=== PATIENT | female | born 1940 | race African-American/Black ===

== ENCOUNTER 2017-12-09 23:19 | Emergency (ER) | payer MEDICARE, MEDICAID ==
[~2017-12-09] VITALS: Ht 157.5 cm; Wt 68.0 kg
[~2017-12-09 23:19] MED LIST: ACET650T10 PO; AMLO10TA2 PO; ATOR10TA PO; CARV6.252 PO; CELE200C PO; CHOL100045 PO; CITA20TA19 PO; DOCU-141 PO; DONE10TA44 PO; Diphenhydramine Hcl PO; FEXO-65 PO; FURO40TA5 PO; HYDR28CR28 TP; HYDR50SY PO; MIRT7.5T10 PO; NITR0.4T SL; PANT40TA4 PO; POLY17PO4 PO; QUET100T PO; QUET25TA PO; RIVA15TA PO; SENN-167 PO; SPIR25TA PO; TRAM50TA2 PO; TRAV5DRO EACHEYE; VENL75CA56 PO; ZOLP5TAB2 PO
--- NOTE | 2017-12-10 00:32 | NUR ---
rec'd pt in bed, BIBA, ain no distress, aaox4, c/o 3rd digit finger blunt trauma s/p door slamming on it, denies any injuries. bleeding controlled,, no visible nail avulsion noted, cap refil < 3 sec, + cms, pt placed in bed, bed in lowest position, locked, HOB up,SR up X2 for safety,CB within reach, awaiting MD koch
[2017-12-10] MEDS: TRAMADOL HCL 50 MG TABLET PO ONE (01:12)
[2017-12-10] MEDS ORDERED: TRAMADOL HCL 50 MG TABLET ONE (01:26)
[2017-12-10] MEDS ORDERED: NEOMY/BACITRA/POLYMYXIN B OINT UD PACKET TP ONE (01:26)
--- NOTE | 2017-12-10 02:11 | NUR ---
called ambulance services on 2827 for [facility] back to assisted living, eta 1hr, ref no [id number],
[2017-12-10] MEDS: NEOMY/BACITRA/POLYMYXIN B OINT UD PACKET TP ONE (02:35)
--- NOTE | 2017-12-10 03:13 | NUR ---
pt in no distress, p/u by EMS, BLS, rx given to EMS personel, pt splint intact, advised to f/u with pmd or return to er for worsening of symptoms, verbalizes understanding
[2017-12-10] MEDS: SULFAMETH/TRIMETH 800/160 MG TABLET PO ONE (03:20)
[2017-12-10] MEDS ORDERED: SULFAMETH/TRIMETH 800/160 MG TABLET ONE (03:35)
== END 2017-12-10 03:24 | disposition home or self-care (01) ==
LOC: ER 23:20
DX: S62.662A Nondisplaced fracture of distal phalanx of right middle finger, initial encounter for closed fracture (principal); I10 Essential (primary) hypertension; K21.9 Gastro-esophageal reflux disease without esophagitis; F03.90 Unspecified dementia, unspecified severity, without behavioral disturbance, psychotic disturbance, mood disturbance, and anxiety; Z88.0 Allergy status to penicillin; Z88.5 Allergy status to narcotic agent; Z95.0 Presence of cardiac pacemaker; Z86.73 Personal history of transient ischemic attack (TIA), and cerebral infarction without residual deficits; Z90.710 Acquired absence of both cervix and uterus; W23.0XXA Caught, crushed, jammed, or pinched between moving objects, initial encounter; Y93.89 Activity, other specified; Y92.89 Other specified places as the place of occurrence of the external cause; Y99.8 Other external cause status
CPT/HCPCS: 73140; A4663

== ENCOUNTER 2018-02-13 18:34 | Emergency (ER) | payer MEDICARE, MEDICAID ==
[~2018-02-13] VITALS: Ht 152.4 cm; Wt 68.0 kg
--- NOTE | 2018-02-13 19:04 | NUR ---
Hands off report given to cupola operator insulation.
[2018-02-13] MEDS ORDERED: ACETAMINOPHEN ES 500 MG TABLET PO ONE (19:15)
--- NOTE | 2018-02-13 19:15 | NUR ---
Patient out of ER for CT.
[2018-02-13] MEDS ORDERED: ACETAMINOPHEN ES 500 MG TABLET ONE (19:27)
--- NOTE | 2018-02-13 19:46 | NUR ---
Patient back to ER from CT.
--- NOTE | 2018-02-13 20:30 | NUR ---
Called [facility] for ambulance transport for patient from [facility] to [facility]. Spoke with Rory, given ETA 2300, Trip#[phone].
--- NOTE | 2018-02-14 00:17 | NUR ---
[facility] arrived to pickup patient for transport to [facility].
--- NOTE | 2018-02-14 00:20 | NUR ---
Patient out of ER via gurney to be taken by EMT to [facility]. VSS, All belongings taken, no acute signs of distress. CD of Xray provided.
[2018-02-14 00:31] VITALS: BP 140/95
== END 2018-02-14 00:20 | disposition home or self-care (01) ==
LOC: ER 18:34
DX: S80.01XA Contusion of right knee, initial encounter (principal); S09.90XA Unspecified injury of head, initial encounter; I10 Essential (primary) hypertension; K21.9 Gastro-esophageal reflux disease without esophagitis; Z95.0 Presence of cardiac pacemaker; Z90.710 Acquired absence of both cervix and uterus; Z88.0 Allergy status to penicillin; Z88.1 Allergy status to other antibiotic agents; Z88.5 Allergy status to narcotic agent; Z88.8 Allergy status to other drugs, medicaments and biological substances; Z79.899 Other long term (current) drug therapy; Z79.891 Long term (current) use of opiate analgesic; W01.0XXA Fall on same level from slipping, tripping and stumbling without subsequent striking against object, initial encounter; Y93.89 Activity, other specified; Y92.89 Other specified places as the place of occurrence of the external cause; Y99.8 Other external cause status
CPT/HCPCS: 70450; A4663; A9150

== ENCOUNTER 2018-02-20 16:11 | Inpatient (IN) | payer MEDICARE, MEDICAID ==
[~2018-02-20] VITALS: Ht 157.5 cm; Wt 64.4 kg
[2018-02-20] MEDS ORDERED: MONT10TA22 PO (16:38)
[2018-02-20] MEDS ORDERED: SULF1TAB48 PO (16:39)
[2018-02-20] MEDS ORDERED: FLUT16SP2 NS (16:39)
[2018-02-20] MEDS ORDERED: LORA-441 PO (16:39)
[2018-02-20] MEDS ORDERED: MELA3TAB52 PO (16:39)
--- NOTE | 2018-02-20 16:53 | NUR ---
PT IS IN ROOM #2B, DR KERR EVALUATED THE PT.
[2018-02-20] MEDS ORDERED: IV NORMAL SALINE 1000 ML BAG IV ONE (17:00)
[2018-02-20 17:07] LABS: *BILIRUBIN,URIN NEGATIVE (NEGATIVE); *BLOOD, URINE NEGATIVE (NEGATIVE); *CLARITY,URINE CLEAR (CLEAR); *COLOR,URINE YELLOW (YELLOW); *KETONES,URINE NEGATIVE (NEGATIVE); *PROTEIN,URINE NEGATIVE (NEGATIVE); *UROBILINOGEN,URINE 0.2 E.U./dl (NORMAL); LEUKOCYTE ESTERASE ,URINE NEGATIVE (NEGATIVE); NITRITE, URINE NEGATIVE (NEGATIVE); UGLUCOSE NEGATIVE (NEGATIVE)
[2018-02-20 17:15] LABS: BACTERIA,URINE FEW /HPF (NONE SEEN); SQUAMOUS EPITHELIAL CELL,UR MODERATE /HPF (NONE SEEN); WBC,URINE 0-3 /HPF (0-3); YEAST,URINE FEW /HPF (NONE SEEN)
[2018-02-20 17:25] LABS: BASOPHILS # (AUTO) 0.1 K/uL (0.0-8.0); EOSINOPHILS # (AUTO) 0.1 K/uL (0.0-0.7); EOSINOPHILS % (AUTO) 0.9 % (0.0-7.0); HEMATOCRIT 39.3 % (31.2-41.9); HEMOGLOBIN 13.2 g/dL (10.9-14.3); LYMPHOCYTES # (AUTO) 2.1 K/uL (20.0-40.0); LYMPHOCYTES % (AUTO) 31.8 % (20.5-51.5); MEAN CORPUSCULAR HEMOGLOBIN 32.1 uug (24.7-32.8); MEAN CORPUSCULAR HGB CONC 34 g/dL (32.3-35.6); MEAN CORPUSCULAR VOLUME 95.6 fL (75.5-95.3); MONOCYTES # (AUTO) 0.7 K/uL (2.0-10.0); MONOCYTES % (AUTO) 10.7 % (0.0-11.0); NEUTROPHILS # (AUTO) 3.6 K/uL (1.8-8.9); NEUTROPHILS % (AUTO) 55.6 % (38.5-71.5); PLATELET COUNT (AUTO) 220 K/uL (179-408); RED BLOOD CELL COUNT(AUTO) 4.11 MIL/uL (3.63-4.92); WHITE BLOOD COUNT (AUTO) 6.6 K/uL (3.8-11.8)
[2018-02-20 17:33] LABS: CARBON DIOXIDE 27 mmol/L (21-32); CHLORIDE 106 mmol/L (98-107); CREATININE 1.2 mg/dL (0.6-1.3); GLUCOSE 101 mg/dL (74-106); UREA NITROGEN, BLOOD 17 mg/dL (7-18)
[2018-02-20 17:45] LABS: ALANINE AMINOTRANSFERASE 26 U/L (14-59); ALKALINE PHOSPHATASE 70 U/L (50-136); ASPARTATE AMINOTRANSFERASE 18 U/L (15-37); BILIRUBIN,DIRECT 0.1 mg/dL (0.0-0.2); BILIRUBIN,TOTAL 0.3 mg/dL (0.2-1.0)
--- NOTE | 2018-02-20 19:09 | NUR ---
REPORT WAS GIVEN TO JACKSCREW WORKERWARDROBE COORDINATOR.
--- NOTE | 2018-02-20 19:16 | NUR ---
REPORT TAKEN FROM ALEX HOLLIS.
--- NOTE | 2018-02-20 20:14 | NUR ---
PT PROVIDED SNACK. PT RESTING COMFORTABLY IN BED. NO S/S OF ACUTE DISTRESS. PENDING CRISIS EVAL.
--- NOTE | 2018-02-21 00:10 | NUR ---
REPORT GIVEN TO NANCY
--- NOTE | 2018-02-21 00:28 | NUR ---
Pt. admitted to MHU, under care of Dr. LUA Belongs List completed
--- NOTE | 2018-02-21 01:30 | NUR ---
AT APPROX 0015 ADMITTED 77 YEAR OLD FEMALE FROM [facility] ON A 5150 FOR GD. HOLD STARTED ON 02/20/18 AT 2043 AND WILL END ON 02/23/18 AT 2043. PER HOLD, PATIENT HAS BEEN CONFUSED DISORIENTED, WONDERING INTO OTHER PATIENT ROOMS STEALING THEIR BELONGINGS, WALKING AROUND THE FACILITY, AND UNABLE TO BE REDIRECTED. UPON INTERVIEW, PT STATED, "I AM HERE FOR AN EVALUATION". SHE REFUSED SI/AH/VH AT THIS TIME. PT REFUSED V/S, SHE STATED, I AM TIRED, I WANT TO GO TO BED NOW". WE WILL CONTINUE TO MONITOR.
[2018-02-21] MEDS ORDERED: MAGNESIUM HYDROXIDE 30 ML LIQUID UDC PO PRN (02:15)
[2018-02-21] MEDS ORDERED: MAG HYDROX/AL HYDROX/SIMETH 30 ML LIQUID UDC PO PRN (02:15)
[2018-02-21 07:30] VITALS: BP 161/66
--- NOTE | 2018-02-21 14:00 | NUR ---
Gps/Flat Breakdown Processor- Continue to monitor safety, tries to keep getting out of bed, gait occasional gets unsteady ,safety reviewed and emphasized.
[2018-02-21 16:36] VITALS: BP 171/79
[2018-02-21] MEDS ORDERED: DIPHENHYDRAMINE HCL PO PRN (17:30)
[2018-02-21] MEDS ORDERED: DOCUSATE SODIUM 100 MG CAPSULE PO PRN (17:30)
[2018-02-21] MEDS ORDERED: LORATADINE 10 MG PO SCH (17:30)
--- NOTE | 2018-02-21 17:35 | NUR ---
Gps/Cashier Associate- Called Allen Argueta DNP , informed patient c/o chest pain , B/P 176/72- HR 69, Resp 18 02 sat 97 % on room air. Orders received, troponin ordered now and repeat in 4 hours.Nitro Glycerine 0.4 1 tab given SL. continue to monitor patient.
[2018-02-21] MEDS ORDERED: NITROGLYCERIN 0.4 MG/TAB BOTTLE SL PRN (17:45)
[2018-02-21] MEDS: CARVEDILOL 6.25 MG TABLET PO SCH (18:04)
--- NOTE | 2018-02-21 18:22 | NUR ---
Gps/Nursing Secretary- Patient chest pain subsiding at this time, continue to monitor, b/p 137/68 , HR 70, 02 sat 96.%
[2018-02-21] MEDS: RIVAROXABAN 15 MG TABLET PO SCH (18:26)
[2018-02-21 18:31] VITALS: BP 137/68
[2018-02-21 20:30] VITALS: BP 126/66
[2018-02-21] MEDS: ATORVASTATIN 10 MG TABLET PO SCH (20:52)
[2018-02-21] MEDS: TEMAZEPAM 7.5 MG CAPSULE PO PRN (21:00)
[2018-02-21] MEDS ORDERED: AMLODIPINE 10 MG TABLET PO SCH (21:00)
[2018-02-21] MEDS ORDERED: MIRTAZAPINE 15 MG TABLET PO ONE (21:45)
[2018-02-21] MEDS: RIVASTIGMINE TARTRATE 1.5 MG CAPSULE PO SCH (22:24)
[2018-02-21] MEDS: ACETAMINOPHEN 325 MG TABLET PO PRN (22:25)
[2018-02-22] MEDS: ACETAMINOPHEN 325 MG TABLET PO PRN (05:00)
[2018-02-22 07:30] VITALS: BP 168/79
[2018-02-22] MEDS: CHOLECALCIFEROL 1,000 UNIT TABLET PO SCH (08:15)
[2018-02-22] MEDS: SPIRONOLACTONE 25 MG TABLET PO SCH (08:16)
[2018-02-22] MEDS: CARVEDILOL 6.25 MG TABLET PO SCH ×2 (08:16→17:22)
[2018-02-22] MEDS: VENLAFAXINE XR 75 MG CAP.SR.24H PO SCH (08:16)
[2018-02-22] MEDS: FUROSEMIDE 40 MG TABLET PO SCH (08:17)
[2018-02-22] MEDS: MONTELUKAST SODIUM 10 MG TABLET PO SCH (08:17)
[2018-02-22] MEDS: RIVASTIGMINE TARTRATE 1.5 MG CAPSULE PO SCH ×2 (08:17→20:34)
[2018-02-22] MEDS: FLUTICASONE PROP NASAL SPRAY 16 GM BOTTLE NS SCH ×2 (09:00→16:39)
[2018-02-22] MEDS ORDERED: FEXOFENADINE HCL 180 MG TABLET PO SCH (09:00)
--- NOTE | 2018-02-22 10:05 | NUR ---
Gps/Business And Services Instructor- Dr Thomas was in to see patient, aware of elevated blood pressures, orders received.
[2018-02-22 10:19] VITALS: BP 170/98
--- NOTE | 2018-02-22 10:57 | NUR ---
Gps/Tile Edger- Called [facility]' assisted living , spoked to Cherry(Nurse) clarified medications per Pharm.req. not taking anymore of hydrocortisone, tramadol nor bactrim, but still takes travatan both eye at HS.
[2018-02-22] MEDS: FEXOFENADINE HCL 60 MG TABLET PO SCH (12:19)
[2018-02-22] MEDS: PANTOPRAZOLE SODIUM 40 MG TABLET.DR PO SCH (12:19)
[2018-02-22 15:27] VITALS: BP 137/75
--- NOTE | 2018-02-22 16:00 | NUR ---
Gps/Nurses Director- Dr Frazier was in to see patient, informed of episode of chest pain yesterday, reviewed medications, and vital signs.
[2018-02-22] MEDS: RIVAROXABAN 15 MG TABLET PO SCH (17:29)
--- NOTE | 2018-02-22 20:00 | NUR ---
RECEIVED PATIENT IN HER ROOM IN BED. SHE WAS NOTED AWAKE A/O X 3, SHE IS ABLE TO MAKE HER NEEDS KNOWN. SHE IS NOTED CALM, FORGETFUL. SHE REQUESTED A "SLEEPING PILL" PT WAS REDIRECTED (TOO SOON FOR SLEEPING PILL). DENIES AH/VA. PT COMPLIANT WITH MEDICATION REGIMENT. SAFETY EMPHASIS. WILL CONTINUE TO MONITOR.
[2018-02-22] MEDS: ATORVASTATIN 10 MG TABLET PO SCH (20:34)
[2018-02-22] MEDS: MIRTAZAPINE 15 MG TABLET PO SCH (20:35)
[2018-02-22] MEDS: AMLODIPINE 2.5 MG TABLET PO SCH (20:36)
[2018-02-22 20:37] VITALS: BP 136/72
[2018-02-22] MEDS: LATANOPROST OPHT DROP 2.5 ML BOTTLE EACHEYE SCH (21:00)
[2018-02-22] MEDS: TEMAZEPAM 7.5 MG CAPSULE PO PRN (22:33)
--- NOTE | 2018-02-22 22:50 | NUR ---
PATIENT WAS GIVEN TEMAZEPAM 7.5MG PO PRN FOR INSOMNIA PER PT REQUEST AND NURSING ASSESSMENT.
[2018-02-23] MEDS: PANTOPRAZOLE SODIUM 40 MG TABLET.DR PO SCH (06:28)
[2018-02-23 07:30] VITALS: BP 153/88
[2018-02-23] MEDS: LORAZEPAM 0.5 MG TABLET PO PRN (08:24)
[2018-02-23] MEDS: CHOLECALCIFEROL 1,000 UNIT TABLET PO SCH (08:40)
[2018-02-23] MEDS: SPIRONOLACTONE 25 MG TABLET PO SCH (08:40)
[2018-02-23] MEDS: CARVEDILOL 6.25 MG TABLET PO SCH ×2 (08:40→17:21)
[2018-02-23] MEDS: FUROSEMIDE 40 MG TABLET PO SCH (08:40)
[2018-02-23] MEDS: RIVASTIGMINE TARTRATE 1.5 MG CAPSULE PO SCH ×2 (08:40→20:08)
[2018-02-23] MEDS: VENLAFAXINE XR 75 MG CAP.SR.24H PO SCH (08:40)
[2018-02-23] MEDS: FEXOFENADINE HCL 60 MG TABLET PO SCH (08:41)
[2018-02-23] MEDS: MONTELUKAST SODIUM 10 MG TABLET PO SCH (08:41)
[2018-02-23] MEDS: FLUTICASONE PROP NASAL SPRAY 16 GM BOTTLE NS SCH ×2 (08:42→16:12)
[2018-02-23] MEDS: CLONAZEPAM 0.5 MG TABLET PO SCH ×2 (13:32→16:11)
--- NOTE | 2018-02-23 14:03 | NUR ---
Initial DC Plan: Patient currently resides at [facility] [[address] [place] [address]; [phone]]. SW will follow up with the facility to see if they can accept patient back. SW will follow up with MD, patient, and patient's daughter Rosaura [[phone]] to discuss most appropriate discharge plans. SW will form a safe and proper discharge.
[2018-02-23] MEDS: ACETAMINOPHEN 325 MG TABLET PO PRN (15:12)
[2018-02-23 15:26] VITALS: BP 138/80
[2018-02-23] MEDS: RIVAROXABAN 15 MG TABLET PO SCH (17:20)
--- NOTE | 2018-02-23 17:49 | NUR ---
GPS: Nursing Notes: Thought Disorder: Patient is awake and responding to her name, poor impulse control, overly disruptive by shouting, screaming constantly, needy, forgetful, A/Ox2, gets easily irritable when redirected, redirected and setting limits, but continue to shout, unable to formulate a viable plan for self care, continue with treatment plan.
[2018-02-23] MEDS: ATORVASTATIN 10 MG TABLET PO SCH (20:07)
[2018-02-23] MEDS: AMLODIPINE 2.5 MG TABLET PO SCH (20:08)
[2018-02-23] MEDS: MIRTAZAPINE 15 MG TABLET PO SCH (20:08)
[2018-02-23] MEDS: LATANOPROST OPHT DROP 2.5 ML BOTTLE EACHEYE SCH (20:09)
[2018-02-23 20:20] VITALS: BP 108/62
--- NOTE | 2018-02-23 21:00 | NUR ---
RECEIVED Pt SITTING IN NATASHA-CHAIR IN THE HALLWAY NEXT TO NURSE'S STATION, AWAKE AND RESPONDING TO NAME, BUT FORGETFUL AND SLIGHTLY CONFUSED. Pt IS NEEDY AND ATTENTION SEEKING, DISRUPTIVE, ALWAYS YELLING FOR NURSE'S NAME. Pt REQUIRES PLENTY OF RE-ORIENTATION AND REDIRECTING. COMPLIANT WITH MEDS AND CARE STAFF, NO HOSTILE OR COMBATIVE BEHAVIORS NOTED. Pt REQUESTED RESTORIL BEFORE BEING TRANSFERRED TO HER BED TO SLEEP. WILL CLOSELY MONITOR Pt BEHAVIOR THROUGHOUT THE SHIFT.
[2018-02-23] MEDS: TEMAZEPAM 7.5 MG CAPSULE PO PRN (21:54)
[2018-02-24] MEDS: PANTOPRAZOLE SODIUM 40 MG TABLET.DR PO SCH (06:36)
--- NOTE | 2018-02-24 06:45 | NUR ---
Pt slept throughout the shift. Shows no signs of distress. Prescribed medication given and pt tolerated it well. Pt was given shower. Pt in vishal-chair watching television. Safety and comfort provided. All needs are met. Still confuse and yelling , seeking attention.Will endorse to dayshift nurse to closely monitor the patients behavior.
[2018-02-24 07:30] VITALS: BP 143/73
[2018-02-24] MEDS: LORAZEPAM 0.5 MG TABLET PO PRN ×2 (08:00→22:02)
[2018-02-24] MEDS: FLUTICASONE PROP NASAL SPRAY 16 GM BOTTLE NS SCH ×2 (08:39→16:12)
[2018-02-24] MEDS: FUROSEMIDE 40 MG TABLET PO SCH (08:39)
[2018-02-24] MEDS: CARVEDILOL 6.25 MG TABLET PO SCH ×2 (08:39→17:17)
[2018-02-24] MEDS: CHOLECALCIFEROL 1,000 UNIT TABLET PO SCH (08:40)
[2018-02-24] MEDS: VENLAFAXINE XR 75 MG CAP.SR.24H PO SCH (08:40)
[2018-02-24] MEDS: FEXOFENADINE HCL 60 MG TABLET PO SCH (08:40)
[2018-02-24] MEDS: MONTELUKAST SODIUM 10 MG TABLET PO SCH (08:40)
[2018-02-24] MEDS: RIVASTIGMINE TARTRATE 1.5 MG CAPSULE PO SCH ×2 (08:40→20:24)
[2018-02-24] MEDS: SPIRONOLACTONE 25 MG TABLET PO SCH (08:40)
[2018-02-24] MEDS: CLONAZEPAM 0.5 MG TABLET PO SCH ×3 (08:40→16:12)
[2018-02-24 15:12] VITALS: BP 141/77
[2018-02-24] MEDS: RIVAROXABAN 15 MG TABLET PO SCH (17:18)
--- NOTE | 2018-02-24 19:15 | NUR ---
Sleeping in room during initial rounds. No s/s of pain/discomforts noted. Continue to monitor.
[2018-02-24] MEDS: ATORVASTATIN 10 MG TABLET PO SCH (20:24)
[2018-02-24] MEDS: AMLODIPINE 2.5 MG TABLET PO SCH (20:24)
--- NOTE | 2018-02-24 20:25 | NUR ---
Awakened, wheeled down to the TV room via Shannon chair.
[2018-02-24] MEDS: MIRTAZAPINE 15 MG TABLET PO SCH (20:26)
[2018-02-24 20:51] VITALS: BP 121/66
[2018-02-24] MEDS: LATANOPROST OPHT DROP 2.5 ML BOTTLE EACHEYE SCH (21:00)
--- NOTE | 2018-02-24 21:00 | NUR ---
remains at nurses station, up in vishal chair restless, yelling intermittently. difficult to redirect. compliant with medications. currently eating a snack.
--- NOTE | 2018-02-24 22:30 | NUR ---
PRN ativan given at 2201. assisted to bed, at that time. as of 2229, she appears to be asleep. no distress noted. will continue to monitor closely.
[2018-02-25] MEDS: LORAZEPAM 0.5 MG TABLET PO PRN (06:13)
--- NOTE | 2018-02-25 06:13 | NUR ---
pt is now awake, yelling out. difficult to redirect. PRN ativan was given. assisted up in vishal chair, for safety.
[2018-02-25] MEDS: PANTOPRAZOLE SODIUM 40 MG TABLET.DR PO SCH (06:21)
--- NOTE | 2018-02-25 06:42 | NUR ---
Slept 6 hours. Appears calmer now. In the hallway in a Shannon-chair. Continue care as planned.
[2018-02-25 07:30] VITALS: BP 133/74
[2018-02-25] MEDS: CHOLECALCIFEROL 1,000 UNIT TABLET PO SCH (08:39)
[2018-02-25] MEDS: VENLAFAXINE XR 75 MG CAP.SR.24H PO SCH (08:39)
[2018-02-25] MEDS: RIVASTIGMINE TARTRATE 1.5 MG CAPSULE PO SCH ×2 (08:39→20:15)
[2018-02-25] MEDS: FUROSEMIDE 40 MG TABLET PO SCH (08:39)
[2018-02-25] MEDS: CARVEDILOL 6.25 MG TABLET PO SCH ×2 (08:40→17:26)
[2018-02-25] MEDS: SPIRONOLACTONE 25 MG TABLET PO SCH (08:40)
[2018-02-25] MEDS: MONTELUKAST SODIUM 10 MG TABLET PO SCH (08:40)
[2018-02-25] MEDS: CLONAZEPAM 0.5 MG TABLET PO SCH ×3 (08:41→17:24)
[2018-02-25] MEDS: FLUTICASONE PROP NASAL SPRAY 16 GM BOTTLE NS SCH ×2 (08:47→17:00)
[2018-02-25] MEDS: FEXOFENADINE HCL 60 MG TABLET PO SCH (08:48)
[2018-02-25 14:49] VITALS: BP_SYST 132; BP_SYST 141; BP_DIAS 75; BP_DIAS 76
[2018-02-25] MEDS: RIVAROXABAN 15 MG TABLET PO SCH (17:25)
--- NOTE | 2018-02-25 17:47 | NUR ---
Gps/Barrel Brander- Patient refusing to eat, had poor intake, encouraged to drink ensure supplements.Compliance with medications noted.
[2018-02-25 20:00] VITALS: BP 118/69
[2018-02-25] MEDS: QUETIAPINE FUMARATE 100 MG TABLET PO SCH (20:15)
[2018-02-25] MEDS: ATORVASTATIN 10 MG TABLET PO SCH (20:16)
[2018-02-25] MEDS: AMLODIPINE 2.5 MG TABLET PO SCH (20:16)
[2018-02-25] MEDS: MIRTAZAPINE 15 MG TABLET PO SCH (20:16)
[2018-02-25] MEDS: LATANOPROST OPHT DROP 2.5 ML BOTTLE EACHEYE SCH (21:10)
[2018-02-25] MEDS: TEMAZEPAM 7.5 MG CAPSULE PO PRN (21:27)
--- NOTE | 2018-02-25 22:30 | NUR ---
received to care, lying in bed, pleasant upon approach. assisted up in the vishal chair, at her request. within 5 minutes, she was yelling for staff to put her back to bed. she was reminded that she agreed to stay up,for at least 1 hour. she then calmed down, and watched tv, for a while. PRN restoril was given at 2126, for insomnia. she was assisted back to bed at 2199. as of 2229, she appears to be asleep. no distress noted. will continue to monitor closely.
--- NOTE | 2018-02-26 06:00 | NUR ---
slept 8 hours, total. assisted with am care, and shower. she is now asleep. no distress noted.
[2018-02-26] MEDS: PANTOPRAZOLE SODIUM 40 MG TABLET.DR PO SCH (06:14)
[2018-02-26 07:30] VITALS: BP 127/65
[2018-02-26] MEDS: VENLAFAXINE XR 75 MG CAP.SR.24H PO SCH (08:09)
[2018-02-26] MEDS: CARVEDILOL 6.25 MG TABLET PO SCH ×2 (08:09→18:00)
[2018-02-26] MEDS: CHOLECALCIFEROL 1,000 UNIT TABLET PO SCH (08:09)
[2018-02-26] MEDS: RIVASTIGMINE TARTRATE 1.5 MG CAPSULE PO SCH ×2 (08:10→20:30)
[2018-02-26] MEDS: SPIRONOLACTONE 25 MG TABLET PO SCH (08:10)
[2018-02-26] MEDS: MONTELUKAST SODIUM 10 MG TABLET PO SCH (08:10)
[2018-02-26] MEDS: QUETIAPINE FUMARATE 100 MG TABLET PO SCH ×2 (08:10→20:30)
[2018-02-26] MEDS: FUROSEMIDE 40 MG TABLET PO SCH (08:10)
[2018-02-26] MEDS: CLONAZEPAM 0.5 MG TABLET PO SCH ×3 (08:10→18:44)
[2018-02-26] MEDS: FEXOFENADINE HCL 60 MG TABLET PO SCH (08:12)
[2018-02-26] MEDS: FLUTICASONE PROP NASAL SPRAY 16 GM BOTTLE NS SCH ×2 (08:13→17:00)
[2018-02-26 15:15] VITALS: BP 94/50
--- NOTE | 2018-02-26 15:17 | NUR ---
Firearms Reporting: CHARITO submitted Mental Health Report to DOJ on 02/26.
[2018-02-26] MEDS: RIVAROXABAN 15 MG TABLET PO SCH (18:47)
[2018-02-26] MEDS: ATORVASTATIN 10 MG TABLET PO SCH (20:29)
[2018-02-26] MEDS: MIRTAZAPINE 15 MG TABLET PO SCH (20:29)
[2018-02-26] MEDS: AMLODIPINE 2.5 MG TABLET PO SCH (20:30)
[2018-02-26] MEDS: LATANOPROST OPHT DROP 2.5 ML BOTTLE EACHEYE SCH (20:30)
[2018-02-26 20:49] VITALS: BP 114/61
[2018-02-26] MEDS: TEMAZEPAM 7.5 MG CAPSULE PO PRN (22:24)
[2018-02-27] MEDS: PANTOPRAZOLE SODIUM 40 MG TABLET.DR PO SCH (06:06)
--- NOTE | 2018-02-27 07:25 | NUR ---
Shift report given by nightshift RN. Pt without significant change in condition during noc shift. Rec'd [facility] near nurse's station. In fair condition. No s/s of acute distress noted. On RA, no SOB. Denies pain. Continues to be needey and demanding with staff. Continues to display attention seeking behavior. All needs met at this time. Will continue to monitor for change.
[2018-02-27 07:30] VITALS: BP 104/52
[2018-02-27] MEDS: CARVEDILOL 6.25 MG TABLET PO SCH ×2 (08:00→17:31)
[2018-02-27] MEDS: SPIRONOLACTONE 25 MG TABLET PO SCH (08:21)
[2018-02-27] MEDS: FEXOFENADINE HCL 60 MG TABLET PO SCH (08:22)
[2018-02-27] MEDS: VENLAFAXINE XR 75 MG CAP.SR.24H PO SCH (08:22)
[2018-02-27] MEDS: FUROSEMIDE 40 MG TABLET PO SCH (08:23)
[2018-02-27] MEDS: RIVASTIGMINE TARTRATE 1.5 MG CAPSULE PO SCH ×2 (08:23→20:29)
[2018-02-27] MEDS: CLONAZEPAM 0.5 MG TABLET PO SCH ×3 (08:23→16:28)
[2018-02-27] MEDS: QUETIAPINE FUMARATE 100 MG TABLET PO SCH ×2 (08:24→21:00)
[2018-02-27] MEDS: MONTELUKAST SODIUM 10 MG TABLET PO SCH (08:25)
[2018-02-27] MEDS: CHOLECALCIFEROL 1,000 UNIT TABLET PO SCH (08:25)
[2018-02-27] MEDS: FLUTICASONE PROP NASAL SPRAY 16 GM BOTTLE NS SCH ×2 (10:00→16:31)
[2018-02-27 15:00] VITALS: BP 106/64
[2018-02-27] MEDS: ACETAMINOPHEN 325 MG TABLET PO PRN (16:28)
[2018-02-27] MEDS: RIVAROXABAN 15 MG TABLET PO SCH (17:53)
--- NOTE | 2018-02-27 18:33 | NUR ---
Pt remained in fair condition during shift. Continues to have behavior of asking to be up in gerichair and then immediately asking to go back to bed thereafter. Reoriented and redirected pt as needed. Pt with behavior of yelling out to get attention. Less agitated. Denies pain. No s/s of acute distress noted at this time. Will continue to monitor for change.
[2018-02-27 20:00] VITALS: BP 106/50
[2018-02-27] MEDS: MIRTAZAPINE 15 MG TABLET PO SCH (20:29)
[2018-02-27] MEDS: ATORVASTATIN 10 MG TABLET PO SCH (20:29)
[2018-02-27] MEDS: LATANOPROST OPHT DROP 2.5 ML BOTTLE EACHEYE SCH (20:29)
[2018-02-27] MEDS: AMLODIPINE 2.5 MG TABLET PO SCH (20:30)
[2018-02-27] MEDS: QUETIAPINE FUMARATE 25 MG TABLET PO SCH (21:00)
[2018-02-28] MEDS: PANTOPRAZOLE SODIUM 40 MG TABLET.DR PO SCH (06:12)
[2018-02-28 07:30] VITALS: BP 112/52
[2018-02-28] MEDS: FLUTICASONE PROP NASAL SPRAY 16 GM BOTTLE NS SCH ×2 (08:02→17:31)
[2018-02-28] MEDS: CHOLECALCIFEROL 1,000 UNIT TABLET PO SCH (08:04)
[2018-02-28] MEDS: RIVASTIGMINE TARTRATE 1.5 MG CAPSULE PO SCH ×2 (08:04→20:14)
[2018-02-28] MEDS: SPIRONOLACTONE 25 MG TABLET PO SCH (08:05)
[2018-02-28] MEDS: FUROSEMIDE 40 MG TABLET PO SCH (08:05)
[2018-02-28] MEDS: MONTELUKAST SODIUM 10 MG TABLET PO SCH (08:05)
[2018-02-28] MEDS: VENLAFAXINE XR 75 MG CAP.SR.24H PO SCH (08:05)
[2018-02-28] MEDS: CLONAZEPAM 0.5 MG TABLET PO SCH ×3 (08:05→17:31)
[2018-02-28] MEDS: QUETIAPINE FUMARATE 100 MG TABLET PO SCH ×2 (08:05→20:14)
[2018-02-28] MEDS: FEXOFENADINE HCL 60 MG TABLET PO SCH (08:06)
[2018-02-28] MEDS: CARVEDILOL 6.25 MG TABLET PO SCH ×2 (08:06→17:32)
[2018-02-28] MEDS: LORAZEPAM 0.5 MG TABLET PO PRN (11:43)
[2018-02-28] MEDS: ACETAMINOPHEN 325 MG TABLET PO PRN (14:48)
[2018-02-28 16:12] VITALS: BP 100/61
[2018-02-28] MEDS: RIVAROXABAN 15 MG TABLET PO SCH (17:33)
[2018-02-28 19:43] VITALS: BP 99/60
[2018-02-28] MEDS: LATANOPROST OPHT DROP 2.5 ML BOTTLE EACHEYE SCH (20:14)
[2018-02-28] MEDS: ATORVASTATIN 10 MG TABLET PO SCH (20:15)
[2018-02-28] MEDS: MIRTAZAPINE 15 MG TABLET PO SCH (20:15)
[2018-02-28] MEDS: QUETIAPINE FUMARATE 25 MG TABLET PO SCH ×2 (21:00→21:12)
[2018-02-28] MEDS: AMLODIPINE 2.5 MG TABLET PO SCH (21:00)
[2018-03-01] MEDS: PANTOPRAZOLE SODIUM 40 MG TABLET.DR PO SCH (06:25)
--- NOTE | 2018-03-01 06:36 | NUR ---
Patient slept 9 hours. Med compliant. Cooperative. No behavioral issues. Shower done today. Safety maintained t/o shift. Room is kept clutter free. Bed is in low and locked position. All meds given as ordered. All needs met.
[2018-03-01] MEDS: LORAZEPAM 0.5 MG TABLET PO PRN (07:30)
[2018-03-01 07:45] VITALS: BP 97/53
[2018-03-01 07:49] VITALS: BP 114/69
[2018-03-01] MEDS: FUROSEMIDE 40 MG TABLET PO SCH (08:14)
[2018-03-01] MEDS: CLONAZEPAM 0.5 MG TABLET PO SCH ×3 (08:14→17:24)
[2018-03-01] MEDS: FLUTICASONE PROP NASAL SPRAY 16 GM BOTTLE NS SCH ×2 (08:14→17:24)
[2018-03-01] MEDS: MONTELUKAST SODIUM 10 MG TABLET PO SCH (08:15)
[2018-03-01] MEDS: CHOLECALCIFEROL 1,000 UNIT TABLET PO SCH (08:15)
[2018-03-01] MEDS: VENLAFAXINE XR 75 MG CAP.SR.24H PO SCH (08:15)
[2018-03-01] MEDS: RIVASTIGMINE TARTRATE 1.5 MG CAPSULE PO SCH ×2 (08:15→20:40)
[2018-03-01] MEDS: SPIRONOLACTONE 25 MG TABLET PO SCH (08:15)
[2018-03-01] MEDS: QUETIAPINE FUMARATE 100 MG TABLET PO SCH ×2 (08:15→20:59)
[2018-03-01] MEDS: CARVEDILOL 6.25 MG TABLET PO SCH ×2 (08:16→17:25)
[2018-03-01] MEDS: FEXOFENADINE HCL 60 MG TABLET PO SCH (08:16)
[2018-03-01 16:27] VITALS: BP 114/68
[2018-03-01] MEDS: RIVAROXABAN 15 MG TABLET PO SCH (17:25)
[2018-03-01 19:45] VITALS: BP 97/53
[2018-03-01] MEDS: ATORVASTATIN 10 MG TABLET PO SCH (20:41)
[2018-03-01] MEDS: MIRTAZAPINE 15 MG TABLET PO SCH (20:41)
[2018-03-01] MEDS: LATANOPROST OPHT DROP 2.5 ML BOTTLE EACHEYE SCH (20:42)
[2018-03-01 20:58] VITALS: BP 120/59
[2018-03-01] MEDS: AMLODIPINE 2.5 MG TABLET PO SCH (21:02)
[2018-03-02] MEDS: PANTOPRAZOLE SODIUM 40 MG TABLET.DR PO SCH (06:11)
[2018-03-02 07:30] VITALS: BP 116/71
[2018-03-02 08:30] VITALS: BP 94/50
[2018-03-02] MEDS: FUROSEMIDE 40 MG TABLET PO SCH (09:01)
[2018-03-02] MEDS: CHOLECALCIFEROL 1,000 UNIT TABLET PO SCH (09:01)
[2018-03-02] MEDS: SPIRONOLACTONE 25 MG TABLET PO SCH (09:01)
[2018-03-02] MEDS: RIVASTIGMINE TARTRATE 1.5 MG CAPSULE PO SCH ×2 (09:01→20:48)
[2018-03-02] MEDS: MONTELUKAST SODIUM 10 MG TABLET PO SCH (09:01)
[2018-03-02] MEDS: VENLAFAXINE XR 75 MG CAP.SR.24H PO SCH (09:01)
[2018-03-02] MEDS: QUETIAPINE FUMARATE 100 MG TABLET PO SCH ×2 (09:02→20:49)
[2018-03-02] MEDS: CLONAZEPAM 0.5 MG TABLET PO SCH ×3 (09:02→17:07)
[2018-03-02] MEDS: CARVEDILOL 6.25 MG TABLET PO SCH ×2 (09:02→17:09)
[2018-03-02] MEDS: FLUTICASONE PROP NASAL SPRAY 16 GM BOTTLE NS SCH ×2 (09:03→17:08)
[2018-03-02] MEDS: FEXOFENADINE HCL 60 MG TABLET PO SCH (09:04)
[2018-03-02 15:23] VITALS: BP 92/53
[2018-03-02] MEDS: RIVAROXABAN 15 MG TABLET PO SCH (17:08)
[2018-03-02 20:03] VITALS: BP 97/56
[2018-03-02] MEDS: MIRTAZAPINE 15 MG TABLET PO SCH (20:48)
[2018-03-02] MEDS: ATORVASTATIN 10 MG TABLET PO SCH (20:49)
[2018-03-02] MEDS: AMLODIPINE 2.5 MG TABLET PO SCH (20:49)
[2018-03-02] MEDS: LATANOPROST OPHT DROP 2.5 ML BOTTLE EACHEYE SCH (21:11)
--- NOTE | 2018-03-02 22:00 | NUR ---
received to care, lying in bed, pleasant upon approach. compliant with medications, and staff direction. was yelling initially, but caled down, after her needs were met. as of 0, she appears to be asleep. no distress noted. will continue to monitor closely.
[2018-03-03] MEDS: PANTOPRAZOLE SODIUM 40 MG TABLET.DR PO SCH (06:57)
[2018-03-03 07:30] VITALS: BP 111/70
[2018-03-03] MEDS: RIVASTIGMINE TARTRATE 1.5 MG CAPSULE PO SCH (09:18)
[2018-03-03] MEDS: SPIRONOLACTONE 25 MG TABLET PO SCH (09:19)
[2018-03-03] MEDS: FUROSEMIDE 40 MG TABLET PO SCH (09:19)
[2018-03-03] MEDS: QUETIAPINE FUMARATE 100 MG TABLET PO SCH (09:19)
[2018-03-03] MEDS: VENLAFAXINE XR 75 MG CAP.SR.24H PO SCH (09:19)
[2018-03-03] MEDS: CHOLECALCIFEROL 1,000 UNIT TABLET PO SCH (09:19)
[2018-03-03] MEDS: CLONAZEPAM 0.5 MG TABLET PO SCH ×2 (09:19→12:29)
[2018-03-03] MEDS: MONTELUKAST SODIUM 10 MG TABLET PO SCH (09:19)
[2018-03-03 09:20] VITALS: BP 111/70
[2018-03-03] MEDS: FLUTICASONE PROP NASAL SPRAY 16 GM BOTTLE NS SCH (09:20)
[2018-03-03] MEDS: CARVEDILOL 6.25 MG TABLET PO SCH (09:20)
[2018-03-03] MEDS: FEXOFENADINE HCL 60 MG TABLET PO SCH (09:21)
--- NOTE | 2018-03-03 09:31 | NUR ---
Discharge Planning Note: On 03/02 at about 4pm, SW called patient's daughter Rosaura [[phone]] to notify her of patient's upcoming discharge. Rosaura became upset and was unhappy that physicians had not been in contact with her. SW left messages for patient's psychiatrist Dr. Herrera and biological engineer Dr. Solorio, alerting them that patient's daughter wanted a phone call from them.
[2018-03-03 09:50] VITALS: BP 111/70
--- NOTE | 2018-03-03 11:42 | NUR ---
DC Note: Patient will be discharged to [facility] [[address], [place] [address]; ] via ambulance. CHARITO spoke with Partha from [facility] to confirm discharge plans. CHARITO spoke with patient's daughter Rosaura Diop [[phone]] who is aware and agreeable to discharge plans. Patient is AOx1 and is confused. Patient will follow up with Dr. Jacobo (Psychiatrist) and Dr. Barriga (Microbiology Soil Scientist) at the facility. Per request of patient's daughter, CHARITO left a voicemail for Rian at [facility] [ ] notifying him that patient will be going to [facility] short-term and will then return to [facility].
--- NOTE | 2018-03-03 15:30 | NUR ---
GPS: Nursing Notes: Discharge Notes: Patient is awake and responding to her name, cooperative with nursing care, compliant with her medications, needs prompting to participate in therapeutic groups, denies any SI/HI, denies any AH/VH, denies any pain or discomfort, denies any SOB, discharge to [facility], SNF at [id number] [place] [phone] , report given to Eliseo charge nurse at [facility], transported to facility via ambulance. landing worker spoke with patient's daughter Rosaura Diop [[phone]] who is aware and agreeable to discharge plans. Patient will follow up with Dr. Jacobo (Psychiatrist) and Dr. Barriga (Real Estate Leasing Manager) at the facility for aftercare.
== END 2018-03-03 15:30 | DRG 881 ==
LOC: ER 16:13 → GPS 23:42
PROVIDERS: ADMIT Psychiatry & Neurology Psychiatry; ATTEND Internal Medicine
PROC: 0HBNXZZ Excision of Left Foot Skin, External Approach (ICD-10-PCS; principal; 2018-02-26)
PROC: 0HDNXZZ Extraction of Left Foot Skin, External Approach (ICD-10-PCS; 2018-02-26)
PROC: 0HDMXZZ Extraction of Right Foot Skin, External Approach (ICD-10-PCS; 2018-02-26)
DX: F32.9 Major depressive disorder, single episode, unspecified (principal); F03.91 Unspecified dementia, unspecified severity, with behavioral disturbance; I11.9 Hypertensive heart disease without heart failure; I69.934 Monoplegia of upper limb following unspecified cerebrovascular disease affecting left non-dominant side; F39 Unspecified mood [affective] disorder; B35.1 Tinea unguium; N39.0 Urinary tract infection, site not specified; M20.40 Other hammer toe(s) (acquired), unspecified foot; K21.9 Gastro-esophageal reflux disease without esophagitis; F03.90 Unspecified dementia, unspecified severity, without behavioral disturbance, psychotic disturbance, mood disturbance, and anxiety; L84 Corns and callosities; M21.611 Bunion of right foot; M21.612 Bunion of left foot; Z95.0 Presence of cardiac pacemaker; Z79.01 Long term (current) use of anticoagulants; Z79.899 Other long term (current) drug therapy; Z91.83 Wandering in diseases classified elsewhere; Z90.710 Acquired absence of both cervix and uterus
CPT/HCPCS: 36415; 70030-TC; 71045; 83605; 85025; 85730; 87040; 87086; 93005; A4663; J3535; J7030

== ENCOUNTER 2018-12-12 14:03 | Emergency (ER) | payer MEDICARE, MEDICAID ==
[~2018-12-12] VITALS: Ht 154.9 cm; Wt 70.3 kg
[~2018-12-12 14:03] MED LIST changes: -ACET650T10 PO; -AMLO10TA2 PO; +AMLO10TA7 PO; -CELE200C PO; -CITA20TA19 PO; -DONE10TA44 PO; +FLUT16SP2 NS; -HYDR28CR28 TP; +LORA-441 PO; -MIRT7.5T10 PO; +MONT10TA22 PO; -NITR0.4T SL; -POLY17PO4 PO; -QUET100T PO; -QUET25TA PO; -SENN-167 PO; -TRAM50TA2 PO; -VENL75CA56 PO; -ZOLP5TAB2 PO
--- NOTE | 2018-12-12 14:50 | NUR ---
PATIENT WAS SEEN BY . SHE AMBULATED TO BATHROOM WITH STEADY GAIT.
--- NOTE | 2018-12-12 15:23 | NUR ---
PATIENT ATE 2 SANDWICHES AND DRANK WATER. TRANSPORTATION CALLED TO TAKE PT BACK TO FACILITY.
--- NOTE | 2018-12-12 16:29 | NUR ---
AWAITING AMBULANCE TRANSPORTAION BACK TO FACILITY. PATIENT ATE ANOTHER SANDWICH AND AMBULATED TO BATHROOM TWICE.
--- NOTE | 2018-12-12 17:27 | NUR ---
[facility]BULANZ STAFF HERE TO TAKE PATIENT BACK TO [facility]. DC PAPERS AND INSTRUCTIONS GIVEN AND EXPLAINED TO PATIENT AND AMBULANZ STAFF.
[2018-12-12 17:28] VITALS: BP 110/62
== END 2018-12-12 17:29 | disposition home or self-care (01) ==
LOC: ER 14:03
DX: S40.021A Contusion of right upper arm, initial encounter (principal); I11.0 Hypertensive heart disease with heart failure; I50.9 Heart failure, unspecified; I48.91 Unspecified atrial fibrillation; K21.9 Gastro-esophageal reflux disease without esophagitis; Z88.0 Allergy status to penicillin; Z88.6 Allergy status to analgesic agent; Z88.5 Allergy status to narcotic agent; Z88.1 Allergy status to other antibiotic agents; Z88.8 Allergy status to other drugs, medicaments and biological substances; Z90.49 Acquired absence of other specified parts of digestive tract; Z86.73 Personal history of transient ischemic attack (TIA), and cerebral infarction without residual deficits; Z95.0 Presence of cardiac pacemaker; Z79.899 Other long term (current) drug therapy; X58.XXXA Exposure to other specified factors, initial encounter; Y93.89 Activity, other specified; Y92.89 Other specified places as the place of occurrence of the external cause; Y99.8 Other external cause status
CPT/HCPCS: A4663

== ENCOUNTER 2019-01-29 17:38 | Emergency (ER) | payer MEDICAID, MEDICARE ==
[~2019-01-29] VITALS: Ht 154.9 cm; Wt 70.3 kg
[2019-01-29] MEDS ORDERED: TDAP DIPH,PERTUSS,TET VAC/PF 0.5 ML DISP.SYRIN IM ONE ×2 (18:00→18:07)
[2019-01-29] MEDS ORDERED: HYDROCODONE/APAP 5-325MG TABLET PO ONE (18:00)
[2019-01-29] MEDS ORDERED: HYDROCODONE/APAP 5-325MG TABLET ONE (18:07)
--- NOTE | 2019-01-29 18:24 | NUR ---
Patient is resting comfortably on gurney while watching bedside TV, NAD, pending CT scan
--- NOTE | 2019-01-29 18:49 | NUR ---
CT scan is done, pending results, no acute change in condition seen.
--- NOTE | 2019-01-29 18:58 | NUR ---
Hands off report to ALEX Kan,still for CT scan results and disposition,NPO for now until CT scan results are in.
--- NOTE | 2019-01-29 19:19 | NUR ---
Called [facility] for transport of pt back to [facility]. Given ETA 2020, Trip#[phone].
--- NOTE | 2019-01-29 20:05 | NUR ---
[facility] arrived to ER to transport pt back to [facility]. Report and documentation given to EMT.
[2019-01-29 20:11] VITALS: BP 130/60
== END 2019-01-29 20:12 | disposition home or self-care (01) ==
LOC: ER 17:41
DX: S01.511A Laceration without foreign body of lip, initial encounter (principal); S00.83XA Contusion of other part of head, initial encounter; I10 Essential (primary) hypertension; K21.9 Gastro-esophageal reflux disease without esophagitis; Z95.0 Presence of cardiac pacemaker; Z90.710 Acquired absence of both cervix and uterus; Z88.0 Allergy status to penicillin; Z88.5 Allergy status to narcotic agent; Z88.8 Allergy status to other drugs, medicaments and biological substances; Z79.899 Other long term (current) drug therapy; Z79.51 Long term (current) use of inhaled steroids; W22.8XXA Striking against or struck by other objects, initial encounter; Y93.89 Activity, other specified; Y92.89 Other specified places as the place of occurrence of the external cause; Y99.8 Other external cause status
CPT/HCPCS: 70450; 90715; A4663

== ENCOUNTER 2019-04-03 08:59 | Inpatient (IN) | payer MEDICARE, MEDICAID ==
[~2019-04-03] VITALS: Ht 152.4 cm; Wt 70.3 kg
[2019-04-03] MEDS ORDERED: ONDANSETRON 4 MG/2 ML VIAL IV ONE (09:30)
[2019-04-03] MEDS ORDERED: IV NORMAL SALINE 1000 ML BAG IV ONE (09:30)
[2019-04-03] MEDS ORDERED: TRAM50TA2 PO (09:34)
[2019-04-03] MEDS ORDERED: MELO-105 PO (09:34)
[2019-04-03] MEDS ORDERED: GABA-532 PO (09:34)
[2019-04-03] MEDS ORDERED: GABA-534 PO (09:34)
[2019-04-03] MEDS ORDERED: DICL100G16 TP (09:34)
[2019-04-03] MEDS ORDERED: QUET100T PO (09:34)
[2019-04-03] MEDS ORDERED: RIVA1.5C7 PO (09:34)
[2019-04-03] MEDS ORDERED: VENL75CA62 PO (09:34)
[2019-04-03] MEDS ORDERED: LACT10SO PO (09:34)
[2019-04-03] MEDS ORDERED: LATA2.5D7 EACHEYE (09:34)
[2019-04-03 09:36] LABS: BASOPHILS # (AUTO) 0.1 K/uL (0.0-8.0); BASOPHILS % (AUTO) 0.8 % (0.0-2.0); EOSINOPHILS # (AUTO) 0.1 K/uL (0.0-0.7); EOSINOPHILS % (AUTO) 0.9 % (0.0-7.0); HEMATOCRIT 34.9 % (31.2-41.9); HEMOGLOBIN 11.5 g/dL (10.9-14.3); LYMPHOCYTES # (AUTO) 1.2 K/uL (20.0-40.0); LYMPHOCYTES % (AUTO) 18.1 % (20.5-51.5); MEAN CORPUSCULAR HEMOGLOBIN 30.7 uug (24.7-32.8); MEAN CORPUSCULAR HGB CONC 33 g/dL (32.3-35.6); MEAN CORPUSCULAR VOLUME 92.7 fL (75.5-95.3); MONOCYTES # (AUTO) 0.3 K/uL (2.0-10.0); MONOCYTES % (AUTO) 4.5 % (0.0-11.0); NEUTROPHILS # (AUTO) 5.1 K/uL (1.8-8.9); NEUTROPHILS % (AUTO) 75.7 % (38.5-71.5); PLATELET COUNT (AUTO) 264 K/uL (179-408); RED BLOOD CELL COUNT(AUTO) 3.76 MIL/uL (3.63-4.92); WHITE BLOOD COUNT (AUTO) 6.7 K/uL (3.8-11.8)
[2019-04-03] MEDS ORDERED: ONDANSETRON 4 MG/2 ML VIAL ONE (09:37)
[2019-04-03 09:44] LABS: CARBON DIOXIDE 25 mmol/L (21-32); CHLORIDE 104 mmol/L (98-107); CREATININE 2.5 mg/dL (0.6-1.3); GLUCOSE 92 mg/dL (74-106); POTASSIUM 4.7 mmol/L (3.5-5.1); UREA NITROGEN, BLOOD 52 mg/dL (7-18)
[2019-04-03 09:49] LABS: ALANINE AMINOTRANSFERASE 19 U/L (14-59); ALKALINE PHOSPHATASE 88 U/L (50-136); ASPARTATE AMINOTRANSFERASE 14 U/L (15-37); BILIRUBIN,DIRECT 0.1 mg/dL (0.0-0.2); BILIRUBIN,TOTAL 0.5 mg/dL (0.2-1.0); TOTAL PROTEIN, SERUM 6.9 g/dL (6.4-8.2)
--- NOTE | 2019-04-03 10:33 | NUR ---
CALLED LEFT MESSAGE WITH [facility] WAITING FOR CALLBACK
[2019-04-03 10:45] LABS: *BILIRUBIN,URIN NEGATIVE (NEGATIVE); *BLOOD, URINE NEGATIVE (NEGATIVE); *CLARITY,URINE CLEAR (CLEAR); *COLOR,URINE YELLOW (YELLOW); *KETONES,URINE 1+ (NEGATIVE); *UROBILINOGEN,URINE 0.2 E.U./dl (NORMAL); LEUKOCYTE ESTERASE ,URINE NEGATIVE (NEGATIVE); NITRITE, URINE NEGATIVE (NEGATIVE); PH,URINE 5.5 (5.0-8.0); UGLUCOSE NEGATIVE (NEGATIVE)
--- NOTE | 2019-04-03 10:47 | NUR ---
DR VARGAS CALLED SPOKE WITH DR KERR ADMIT PATIENT MS.
[2019-04-03 10:49] LABS: BACTERIA,URINE FEW /HPF (NONE SEEN); RBC,URINE NONE SEEN /HPF (0-3); SQUAMOUS EPITHELIAL CELL,UR MANY /HPF (NONE SEEN); WBC,URINE NONE SEEN /HPF (0-3)
--- NOTE | 2019-04-03 11:00 | NUR ---
Pt. admitted to [facility], under care of Dr. VARGAS Belongs List completed
--- NOTE | 2019-04-03 11:00 | NUR ---
RECEIVED PATIENT FROM EMERGENCY DEPARTMENT,ADMITTED TO [id number] PATIENT ALERT AND ORIENTED X4, PATIENT IN STABLE CONDITION, AMBULATORY. NOTIFIED ORDERS ADDED. ADMISSION ASSESSMENT DONE. SAFETY PRECAUTIONS, OBSERVED AT ALL TIMES, COMFORT MEASURES PROVIDED, CALL LIGHT WITHIN REACH. WILL CONTINUE TO MONITOR.
[2019-04-03] MEDS ORDERED: Z GUARD REMEDY PASTE 57 GM TUBE TOP PRN (11:30)
[2019-04-03] MEDS ORDERED: MAGNESIUM HYDROXIDE 30 ML LIQUID UDC PO PRN (11:30)
[2019-04-03] MEDS ORDERED: ACETAMINOPHEN 325 MG TABLET PO PRN (11:30)
[2019-04-03] MEDS ORDERED: ONDANSETRON 4 MG/2 ML VIAL IV PRN (11:30)
[2019-04-03] MEDS ORDERED: TRAMADOL HCL 50 MG TABLET PO PRN (11:45)
[2019-04-03 11:46] VITALS: BP 115/53
[2019-04-03] MEDS: IV NS 1000 ML 1,000 ML IV PRN (13:02)
[2019-04-03 15:12] VITALS: BP 119/67
[2019-04-03] MEDS: CARVEDILOL 6.25 MG TABLET PO SCH (17:38)
[2019-04-03] MEDS: FLUTICASONE PROP NASAL SPRAY 16 GM BOTTLE NS SCH (17:38)
[2019-04-03] MEDS: GABAPENTIN 100 MG CAPSULE PO SCH (17:38)
[2019-04-03] MEDS: RIVAROXABAN 15 MG TABLET PO SCH (17:40)
[2019-04-03 17:41] LABS: *BILIRUBIN,URIN NEGATIVE (NEGATIVE); *BLOOD, URINE NEGATIVE (NEGATIVE); *CLARITY,URINE CLEAR (CLEAR); *COLOR,URINE YELLOW (YELLOW); *KETONES,URINE TRACE (NEGATIVE); *UROBILINOGEN,URINE 0.2 E.U./dl (NORMAL); LEUKOCYTE ESTERASE ,URINE NEGATIVE (NEGATIVE); NITRITE, URINE NEGATIVE (NEGATIVE); PH,URINE 5.5 (5.0-8.0); UGLUCOSE NEGATIVE (NEGATIVE)
[2019-04-03 17:48] LABS: *CREATININE,URINE 63.2 mg/dL (30-125); *URINE TOTAL PROTEIN RANDOM 6.1 mg/dL (<150/24HR)
[2019-04-03 18:01] LABS: BACTERIA,URINE FEW /HPF (NONE SEEN); RBC,URINE NONE SEEN /HPF (0-3); SQUAMOUS EPITHELIAL CELL,UR MODERATE /HPF (NONE SEEN); WBC,URINE 0-3 /HPF (0-3)
[2019-04-03] MEDS: LATANOPROST OPHT DROP 2.5 ML BOTTLE EACHEYE SCH (18:33)
--- NOTE | 2019-04-03 18:37 | NUR ---
Patient in bed no distress noted, safety measures provided. patient alert and oriented x3. patient remain stable throughout shift no changes in condition.
--- NOTE | 2019-04-03 19:30 | NUR ---
Received patient awake and alert in bed. Not in any form of distress. With IV access on the right antecubital vein to ongoing IVF, infusing well. No complaints at the moment. Bed in low position, locked, side rails up for safety, call light within reach. Will continue to monitor.
[2019-04-03 20:05] VITALS: BP 94/48
[2019-04-03] MEDS: ATORVASTATIN 10 MG TABLET PO SCH (20:18)
[2019-04-03] MEDS: AMLODIPINE 2.5 MG TABLET PO SCH (20:18)
[2019-04-03] MEDS: RIVASTIGMINE TARTRATE 1.5 MG CAPSULE PO SCH (20:18)
[2019-04-03] MEDS: GABAPENTIN 300 MG CAPSULE PO SCH (20:18)
[2019-04-03] MEDS: QUETIAPINE FUMARATE 100 MG TABLET PO SCH (20:19)
[2019-04-03] MEDS ORDERED: AMLODIPINE 10 MG TABLET PO SCH (21:00)
[2019-04-03] MEDS: ZOLPIDEM 5 MG TABLET PO PRN (21:28)
[2019-04-04 04:46] VITALS: BP 125/58
--- NOTE | 2019-04-04 05:42 | NUR ---
Patient slept intermittently throughout the night. No distress noted. No complaints made. Attended all needs. Ensured safety and comfort.
[2019-04-04 06:52] LABS: BASOPHILS % (AUTO) 0.6 % (0.0-2.0); EOSINOPHILS # (AUTO) 0.1 K/uL (0.0-0.7); HEMATOCRIT 32.4 % (31.2-41.9); HEMOGLOBIN 10.6 g/dL (10.9-14.3); LYMPHOCYTES # (AUTO) 1.7 K/uL (20.0-40.0); LYMPHOCYTES % (AUTO) 40.6 % (20.5-51.5); MEAN CORPUSCULAR HEMOGLOBIN 30.4 uug (24.7-32.8); MEAN CORPUSCULAR HGB CONC 33 g/dL (32.3-35.6); MEAN CORPUSCULAR VOLUME 93.2 fL (75.5-95.3); MONOCYTES # (AUTO) 0.5 K/uL (2.0-10.0); MONOCYTES % (AUTO) 12.6 % (0.0-11.0); NEUTROPHILS # (AUTO) 1.9 K/uL (1.8-8.9); NEUTROPHILS % (AUTO) 44.2 % (38.5-71.5); PLATELET COUNT (AUTO) 250 K/uL (179-408); RED BLOOD CELL COUNT(AUTO) 3.47 MIL/uL (3.63-4.92); WHITE BLOOD COUNT (AUTO) 4.3 K/uL (3.8-11.8)
[2019-04-04 07:15] LABS: ALANINE AMINOTRANSFERASE 17 U/L (14-59); ALKALINE PHOSPHATASE 78 U/L (50-136); ASPARTATE AMINOTRANSFERASE 15 U/L (15-37); BILIRUBIN,TOTAL 0.4 mg/dL (0.2-1.0); CARBON DIOXIDE 24 mmol/L (21-32); CHLORIDE 105 mmol/L (98-107); CHOLESTEROL 201 mg/dL (<200); CREATININE 2.6 mg/dL (0.6-1.3); GLUCOSE 94 mg/dL (74-106); HDL CHOLESTEROL 57 mg/dL (40-60); PHOSPHOROUS 3.4 mg/dL (2.5-4.9); TOTAL PROTEIN, SERUM 6.3 g/dL (6.4-8.2); TRIGLYCERIDES 87 MG/DL (30-150); UREA NITROGEN, BLOOD 46 mg/dL (7-18)
[2019-04-04 07:27] LABS: CREATINE KINASE, TOTAL 52 U/L (26-192)
[2019-04-04] MEDS: VENLAFAXINE XR 75 MG CAP.SR.24H PO SCH (08:03)
[2019-04-04] MEDS: GABAPENTIN 100 MG CAPSULE PO SCH ×2 (08:03→16:09)
[2019-04-04] MEDS: PANTOPRAZOLE SODIUM 40 MG TABLET.DR PO SCH (08:03)
[2019-04-04] MEDS: SPIRONOLACTONE 25 MG TABLET PO SCH (08:03)
[2019-04-04] MEDS: RIVASTIGMINE TARTRATE 1.5 MG CAPSULE PO SCH ×2 (08:03→21:00)
[2019-04-04] MEDS: QUETIAPINE FUMARATE 100 MG TABLET PO SCH ×2 (08:03→20:16)
[2019-04-04] MEDS: CARVEDILOL 6.25 MG TABLET PO SCH ×2 (08:03→17:02)
[2019-04-04] MEDS: MONTELUKAST SODIUM 10 MG TABLET PO SCH (08:03)
[2019-04-04] MEDS: FLUTICASONE PROP NASAL SPRAY 16 GM BOTTLE NS SCH ×2 (08:04→16:10)
[2019-04-04] MEDS: LORATADINE 10 MG TAB.RAPDIS PO SCH (08:04)
[2019-04-04] MEDS: IV NS 1000 ML 1,000 ML IV PRN (08:38)
[2019-04-04 11:20] VITALS: BP 121/56
[2019-04-04 15:54] VITALS: BP 121/54
[2019-04-04] MEDS: LATANOPROST OPHT DROP 2.5 ML BOTTLE EACHEYE SCH (17:02)
[2019-04-04] MEDS: RIVAROXABAN 15 MG TABLET PO SCH (17:03)
--- NOTE | 2019-04-04 19:24 | NUR ---
Received patient awake and alert in bed. Not in any form of distress. With IV access on the left forearm vein to ongoing IVF, infusing well. No complaints at the moment. Patient pleasant upon approach and engages in appropriate conversation. Bed in low position, locked, side rails up for safety, call light within reach. Will continue to monitor.
[2019-04-04 20:07] VITALS: BP 91/44
[2019-04-04] MEDS: ATORVASTATIN 10 MG TABLET PO SCH (20:15)
[2019-04-04] MEDS: GABAPENTIN 300 MG CAPSULE PO SCH (20:15)
[2019-04-04] MEDS: AMLODIPINE 2.5 MG TABLET PO SCH (20:15)
[2019-04-04] MEDS: ZOLPIDEM 5 MG TABLET PO PRN (21:11)
[2019-04-05 04:42] VITALS: BP 141/70
--- NOTE | 2019-04-05 05:49 | NUR ---
Patient slept intermittently throughout the night. No distress noted. No complaints made. Attended all needs. Ensured safety and comfort.
[2019-04-05] MEDS: IV NS 1000 ML 1,000 ML IV PRN (05:57)
[2019-04-05 06:51] LABS: BASOPHILS % (AUTO) 0.6 % (0.0-2.0); EOSINOPHILS # (AUTO) 0.1 K/uL (0.0-0.7); EOSINOPHILS % (AUTO) 2.4 % (0.0-7.0); HEMATOCRIT 32.6 % (31.2-41.9); HEMOGLOBIN 10.7 g/dL (10.9-14.3); LYMPHOCYTES # (AUTO) 1.3 K/uL (20.0-40.0); LYMPHOCYTES % (AUTO) 32.2 % (20.5-51.5); MEAN CORPUSCULAR HEMOGLOBIN 30.6 uug (24.7-32.8); MEAN CORPUSCULAR HGB CONC 33 g/dL (32.3-35.6); MEAN CORPUSCULAR VOLUME 93.1 fL (75.5-95.3); MONOCYTES # (AUTO) 0.6 K/uL (2.0-10.0); MONOCYTES % (AUTO) 14.2 % (0.0-11.0); NEUTROPHILS # (AUTO) 2.1 K/uL (1.8-8.9); NEUTROPHILS % (AUTO) 50.6 % (38.5-71.5); PLATELET COUNT (AUTO) 247 K/uL (179-408); WHITE BLOOD COUNT (AUTO) 4.2 K/uL (3.8-11.8)
[2019-04-05 07:16] LABS: ALANINE AMINOTRANSFERASE 18 U/L (14-59); ALKALINE PHOSPHATASE 76 U/L (50-136); ASPARTATE AMINOTRANSFERASE 14 U/L (15-37); BILIRUBIN,TOTAL 0.3 mg/dL (0.2-1.0); CARBON DIOXIDE 30 mmol/L (21-32); CHLORIDE 110 mmol/L (98-107); CREATININE 2.1 mg/dL (0.6-1.3); FERRITIN 42 ng/mL (8-252); GLUCOSE 118 mg/dL (74-106); POTASSIUM 4.6 mmol/L (3.5-5.1); TOTAL PROTEIN, SERUM 6.1 g/dL (6.4-8.2); UREA NITROGEN, BLOOD 34 mg/dL (7-18)
[2019-04-05] MEDS: MONTELUKAST SODIUM 10 MG TABLET PO SCH (08:00)
[2019-04-05] MEDS: CARVEDILOL 6.25 MG TABLET PO SCH (08:01)
[2019-04-05] MEDS: PANTOPRAZOLE SODIUM 40 MG TABLET.DR PO SCH (08:01)
[2019-04-05] MEDS: VENLAFAXINE XR 75 MG CAP.SR.24H PO SCH (08:01)
[2019-04-05] MEDS: RIVASTIGMINE TARTRATE 1.5 MG CAPSULE PO SCH (08:01)
[2019-04-05] MEDS: QUETIAPINE FUMARATE 100 MG TABLET PO SCH (08:01)
[2019-04-05] MEDS: GABAPENTIN 100 MG CAPSULE PO SCH (08:01)
[2019-04-05] MEDS: SPIRONOLACTONE 25 MG TABLET PO SCH (08:01)
[2019-04-05] MEDS: FLUTICASONE PROP NASAL SPRAY 16 GM BOTTLE NS SCH (08:02)
[2019-04-05] MEDS: LORATADINE 10 MG TAB.RAPDIS PO SCH (08:03)
[2019-04-05 08:13] LABS: IRON, SERUM 35 ug/dL (50-175)
[2019-04-05 11:14] VITALS: BP 134/62
--- NOTE | 2019-04-05 14:38 | NUR ---
d/c orders received noted and carried out,d/c heplock per md orders,dc instruction and education give to the pt,pt left the facility via ambulances in stable condition
[2019-04-06 08:06] LABS: A/G RATIO 1.3 (0.7-1.7); ALBUMIN 3.4 g/dL (2.9-4.4); ALPHA-1-GLOBULIN 0.2 g/dL (0.0-0.4); ALPHA-2-GLOBULIN 0.6 g/dL (0.4-1.0); BETA GLOBULIN 0.8 g/dL (0.7-1.3); GAMMA GLOBULIN 0.9 g/dL (0.4-1.8); GLOBULIN, TOTAL 2.6 g/dL (2.2-3.9); M-SPIKE Not Observed g/dL (Not Observed)
== END 2019-04-05 14:42 | DRG 683 ==
LOC: ER 09:01 → MEDSURG3 11:04
PROVIDERS: ADMIT Internal Medicine; ATTEND Internal Medicine
DX: N17.0 Acute kidney failure with tubular necrosis (principal); I48.92 Unspecified atrial flutter; I13.10 Hypertensive heart and chronic kidney disease without heart failure, with stage 1 through stage 4 chronic kidney disease, or unspecified chronic kidney disease; N18.9 Chronic kidney disease, unspecified; D63.1 Anemia in chronic kidney disease; I69.334 Monoplegia of upper limb following cerebral infarction affecting left non-dominant side; K21.9 Gastro-esophageal reflux disease without esophagitis; Z79.01 Long term (current) use of anticoagulants; Z79.899 Other long term (current) drug therapy; F03.90 Unspecified dementia, unspecified severity, without behavioral disturbance, psychotic disturbance, mood disturbance, and anxiety; F39 Unspecified mood [affective] disorder; Z90.710 Acquired absence of both cervix and uterus; Z95.810 Presence of automatic (implantable) cardiac defibrillator; Z88.4 Allergy status to anesthetic agent; Z88.0 Allergy status to penicillin
CPT/HCPCS: 36415; 70030-TC; 71045; 76770; 83550; 83735; 83970; 84100; 84155; 84156; 84165; 84300; 85025; 93005; A4663; G0378; J2405; J3535; J7030

== ENCOUNTER 2019-04-23 19:22 | Emergency (ER) | payer MEDICARE, MEDICAID ==
[~2019-04-23] VITALS: Ht 154.9 cm; Wt 70.8 kg
[~2019-04-23 19:22] MED LIST changes: +DICL100G16 TP; -DOCU-141 PO; -Diphenhydramine Hcl PO; -FEXO-65 PO; +GABA-532 PO; +GABA-534 PO; -HYDR50SY PO; +LACT10SO PO; +LATA2.5D7 EACHEYE; +MELO-105 PO; +QUET100T PO; +RIVA1.5C7 PO; +TRAM50TA2 PO; +VENL75CA62 PO
[2019-04-23] MEDS ORDERED: ONDANSETRON 4 MG/2 ML VIAL IM ONE (20:00)
[2019-04-23] MEDS ORDERED: HYDROMORPHONE 1 MG/1 ML DISP.SYRIN IM ONE (20:00)
[2019-04-23] MEDS ORDERED: TRAMADOL HCL 50 MG TABLET PO ONE (20:15)
--- NOTE | 2019-04-23 20:15 | NUR ---
Pt. taken off unit via stretcher by [facility]. for Xray
--- NOTE | 2019-04-23 20:45 | NUR ---
Pt. given ice pack for pain and comfort, sat up in bed per pt. request,
[2019-04-23] MEDS ORDERED: TRAMADOL HCL 50 MG TABLET ONE (20:51)
[2019-04-23 20:52] LABS: BASOPHILS % (AUTO) 0.4 % (0.0-2.0); EOSINOPHILS % (AUTO) 0.3 % (0.0-7.0); HEMATOCRIT 33.5 % (31.2-41.9); HEMOGLOBIN 11.1 g/dL (10.9-14.3); LYMPHOCYTES # (AUTO) 1.4 K/uL (20.0-40.0); LYMPHOCYTES % (AUTO) 22.4 % (20.5-51.5); MEAN CORPUSCULAR HEMOGLOBIN 30.1 uug (24.7-32.8); MEAN CORPUSCULAR HGB CONC 33 g/dL (32.3-35.6); MEAN CORPUSCULAR VOLUME 90.8 fL (75.5-95.3); MONOCYTES # (AUTO) 0.7 K/uL (2.0-10.0); MONOCYTES % (AUTO) 11.1 % (0.0-11.0); NEUTROPHILS # (AUTO) 4.1 K/uL (1.8-8.9); NEUTROPHILS % (AUTO) 65.8 % (38.5-71.5); PLATELET COUNT (AUTO) 278 K/uL (179-408); RED BLOOD CELL COUNT(AUTO) 3.69 MIL/uL (3.63-4.92); WHITE BLOOD COUNT (AUTO) 6.2 K/uL (3.8-11.8)
[2019-04-23 20:58] LABS: CARBON DIOXIDE 28 mmol/L (21-32); CHLORIDE 106 mmol/L (98-107); CREATININE 2.3 mg/dL (0.6-1.3); GLUCOSE 103 mg/dL (74-106); POTASSIUM 4.1 mmol/L (3.5-5.1); UREA NITROGEN, BLOOD 42 mg/dL (7-18)
[2019-04-23 21:03] LABS: ALANINE AMINOTRANSFERASE 24 U/L (14-59); ALKALINE PHOSPHATASE 86 U/L (50-136); ASPARTATE AMINOTRANSFERASE 14 U/L (15-37); BILIRUBIN,TOTAL 0.3 mg/dL (0.2-1.0); TOTAL PROTEIN, SERUM 7.1 g/dL (6.4-8.2)
--- NOTE | 2019-04-23 23:08 | NUR ---
Called [facility] - gave report to Shania
--- NOTE | 2019-04-23 23:08 | NUR ---
Called [facility] - spoke erasto NAIDU [id number], trip #[phone]
--- NOTE | 2019-04-23 23:59 | NUR ---
Pt. resting in bed, bed in low position, juice given per pt., request, NAD
--- NOTE | 2019-04-24 00:57 | NUR ---
Called [facility] for update on ambulance - ETA 0130 Pt. resting in bed, NAD
--- NOTE | 2019-04-24 01:51 | NUR ---
Patient discharged to home in stable conditon. Written and verbal after care instructions given. Patient verbalizes understanding of instructions. Pt. d/c per MD order, d/c papers signed, all belongings w/ pt., ID band removed, taken off unit via stretcher by [id number], NAD
== END 2019-04-24 01:56 | disposition home or self-care (01) ==
LOC: ER 19:23
DX: M25.552 Pain in left hip (principal); M54.5 Low back pain; M79.605 Pain in left leg; I10 Essential (primary) hypertension; K21.9 Gastro-esophageal reflux disease without esophagitis; Z95.0 Presence of cardiac pacemaker; Z90.710 Acquired absence of both cervix and uterus; Z88.0 Allergy status to penicillin; Z88.6 Allergy status to analgesic agent; Z88.1 Allergy status to other antibiotic agents; Z88.8 Allergy status to other drugs, medicaments and biological substances; Z88.5 Allergy status to narcotic agent; Z79.899 Other long term (current) drug therapy; W18.30XA Fall on same level, unspecified, initial encounter; Y93.89 Activity, other specified; Y92.89 Other specified places as the place of occurrence of the external cause; Y99.8 Other external cause status
CPT/HCPCS: 36415; 72100; 72170; 73551; 85025; 85730; 93005; A4663

== ENCOUNTER 2019-08-11 15:56 | Emergency (ER) | payer MEDICARE, MEDICAID ==
[~2019-08-11] VITALS: Ht 154.9 cm; Wt 59.0 kg
[~2019-08-11 15:56] MED LIST changes: -LORA-441 PO; +LORA10TA60 PO
--- NOTE | 2019-08-11 16:06 | NUR ---
PT IS IN ROOM #2A. DR MARSHALL EVALUATED THE PT.
[2019-08-11] MEDS ORDERED: ACETAMINOPHEN 325 MG TABLET PO ONE (16:15)
[2019-08-11] MEDS ORDERED: ACETAMINOPHEN 325 MG TABLET ONE (16:15)
[2019-08-11] MEDS ORDERED: OMEP1CAP25 PO (17:24)
[2019-08-11] MEDS ORDERED: DICL100G16 TP (17:24)
[2019-08-11] MEDS ORDERED: RIVA15TA PO (17:24)
[2019-08-11] MEDS ORDERED: tylenol (17:24)
[2019-08-11] MEDS ORDERED: SPIR25TA6 PO (17:24)
[2019-08-11] MEDS ORDERED: CARV6.252 PO (17:24)
[2019-08-11] MEDS ORDERED: NORT10CA PO (17:24)
--- NOTE | 2019-08-11 17:54 | NUR ---
S AMBULANCE WAS CALLED ( [facility] : [phone]) TO TRANSFER PT BACK TO [facility]. JAMES IS 1 HOUR.
--- NOTE | 2019-08-11 19:07 | NUR ---
REPORT GIVEN TO ISO COORDINATOR RN.
--- NOTE | 2019-08-11 19:15 | NUR ---
HAND OFF AND SBAR RECEIVED FROM OUTGOING DAY SHIFT RN PT IS ASLEEP BUT EASILY ROUSED. PT MONITORED ACCORDINGLY
--- NOTE | 2019-08-11 19:50 | NUR ---
PICKED UP BY JESSICA AT THIS TIME TRANSFERRED BACK TO HOME VIA [facility] PT NAD Patient discharged to home in stable conditon. Written and verbal after care instructions given. Patient verbalizes understanding of instructions. ALL BELONGINGS W/ PT
[2019-08-11 19:51] VITALS: BP 129/88
== END 2019-08-11 19:51 | disposition home or self-care (01) ==
LOC: ER 15:58
DX: S09.90XA Unspecified injury of head, initial encounter (principal); M48.00 Spinal stenosis, site unspecified; I10 Essential (primary) hypertension; K21.9 Gastro-esophageal reflux disease without esophagitis; Z95.0 Presence of cardiac pacemaker; Z90.710 Acquired absence of both cervix and uterus; Z88.0 Allergy status to penicillin; Z88.6 Allergy status to analgesic agent; Z88.5 Allergy status to narcotic agent; Z79.899 Other long term (current) drug therapy; Z88.1 Allergy status to other antibiotic agents; Z88.8 Allergy status to other drugs, medicaments and biological substances; W01.198A Fall on same level from slipping, tripping and stumbling with subsequent striking against other object, initial encounter; Y93.89 Activity, other specified; Y92.89 Other specified places as the place of occurrence of the external cause; Y99.8 Other external cause status
CPT/HCPCS: 70450; 72125; A4663